=== PATIENT | female | born 1940 | race Caucasian/White ===

== ENCOUNTER 2024-09-01 04:48 | Inpatient (IN) | payer MEDICARE ==
[2024-09-01] MEDS ORDERED: Nitroglycerin 50 MG/250 ML BOT 250 ML ONE (04:52)
[2024-09-01] MEDS ORDERED: Labetalol HCl 100 MG/20 ML VIAL ONE (04:56)
[2024-09-01 05:18] LABS: Actual Bicarbonate (HCO3v) 26.7 mEq/L (22-28); Base Excess -2.2 mEq/L (-2.0 to +3.0); Calcium, Ionized (venous) 1.17 mmol/L (1.16-1.32); Chloride (VBG) 104 mmol/L (98-106); Hematocrit-VBG 45 % (36.0-47.0); Hemoglobin (Hb) 15.2 g/dL (11.7-16.1); Potassium (VBG) 4.15 mmol/L (3.70-5.30); Sodium 142 mmol/L (133-146); pH (venous) 7.241 (7.32-7.43)
[2024-09-01 05:19] LABS: #Basophils 0.09 10x3/uL (0.0-0.2); %Basophils 0.7 % (0.0-1.0); %Lymphocytes 28.2 % (21.0-51.0); %Monocytes 4.3 % (0.0-10.0); %Neutrophils 64.5 % (42.0-75.0); Hematocrit 43.3 % (36.0-47.0); Hemoglobin 14.1 g/dL (12.0-16.0); Mean Corpuscular HGB CONC 32.6 g/dL (32.0-36.0); Mean Corpuscular Hemoglobin 31.2 pg (27.0-31.0); Mean Corpuscular Volume 95.8 fL (78.0-98.0); Mean Platelet Volume 10.1 fL (7.4-10.4); Platelet Count 286 10x3/uL (130-400); RBC Distribution Width 13.2 % (11.5-14.5); Red Blood Cell (RBC) Count 4.52 mill/uL (4.20-5.40)
[2024-09-01 05:36] LABS: ALT (SGPT) 64 U/L (8-55); AST (SGOT) 69 U/L (5-34); Albumin 3.6 g/dL (3.4-4.8); Alkaline Phosphatase 152 U/L (40-110); Anion Gap 13 mmol/L (10-20); BUN (Urea Nitrogen) 19 mg/dL (9.8-20.1); Bilirubin, Total 0.4 mg/dL (0.2-1.2); Calc. Creatinine Clearance 0 mL/min (70-130); Calcium 8.9 mg/dL (7.8-10.44); Carbon Dioxide 27 mmol/L (23-31); Chloride 104 mmol/L (98-107); Estimated GFR 67; Globulin 3.2 g/dL (2.4-3.5); Glucose 215 mg/dL (83-110); Potassium 3.9 mmol/L (3.5-5.1); Protein, Total 6.8 g/dL (5.8-8.1); Sodium 140 mmol/L (136-145)
[2024-09-01 05:40] LABS: Troponin I Less than 0.010 ng/mL (< 0.028)
[2024-09-01] MEDS ORDERED: Sodium Chloride 0.9% 1,000 ML IV SCH (07:00)
[2024-09-01] MEDS ORDERED: Furosemide 40 MG (4 mL) VIAL ONE (07:01)
[2024-09-01] MEDS ORDERED: Ondansetron PF 4 MG/2 ML Vial IVP PRN (07:27)
[2024-09-01] MEDS ORDERED: Albuterol 2.5 MG (3 mL) NEB NEB PRN (07:27)
[2024-09-01] MEDS ORDERED: Ipratropium Bromide 2.5 ml Neb NEB PRN (07:27)
[2024-09-01] MEDS ORDERED: Acetaminophen 325 MG TAB PO PRN (07:27)
[2024-09-01] MEDS ORDERED: Azithromycin 250 MG TAB ONE (08:13)
[2024-09-01] MEDS ORDERED: Sodium Chloride 0.9% 100 ML ONE (08:14)
[2024-09-01] MEDS ORDERED: methylPREDNISolone Sod Succ 40 MG VIAL ONE (08:14)
[2024-09-01] MEDS ORDERED: cefTRIAXone (ROCEPHIN) 2 GM VIAL ONE (08:14)
[2024-09-01] MEDS: Arformoterol 15 MCG/2 ML NEB NEB SCH ×2 (08:24→19:04)
[2024-09-01] MEDS: methylPREDNISolone Sod Succ 40 MG VIAL IVP SCH (08:31)
[2024-09-01] MEDS: Azithromycin 250 MG TAB PO SCH (08:31)
[2024-09-01] MEDS: cefTRIAXone\\ROCEPHIN 2 GM in Sodium Chloride 0.9% 100 ML IVPB SCH (08:31)
[2024-09-01] MEDS ORDERED: Enoxaparin 40 MG (0.4 mL) SYRINGE ONE (08:33)
[2024-09-01] MEDS: Enoxaparin 40 MG (0.4 mL) SYRINGE SC SCH (08:38)
[2024-09-01] MEDS ORDERED: Pantoprazole DR 40 MG TAB ONE (10:32)
[2024-09-01] MEDS: Pantoprazole DR 40 MG TAB PO SCH (10:38)
[2024-09-01 10:40] VITALS: BMI 25.0
[2024-09-01] MEDS ORDERED: Nitroglycerin 2% Ointment 1 INCH/1 GM Packet TOP PRN (10:45)
[2024-09-01] MEDS: Hydrocortisone 1% Cream 30 GM TUBE TOP SCH (13:18)
[2024-09-01] MEDS: Furosemide 40 MG (4 mL) VIAL SLOW IVP SCH (14:22)
[2024-09-01] MEDS: Carvedilol 3.125 MG TAB PO SCH (16:41)
[2024-09-01] MEDS ORDERED: FLU (Fluad Triv) TS24-25 (65UP)/MF59C/PF 45 MCG/0.5 ML Syringe IM ONE (18:00)
[2024-09-01] MEDS: Ipratropium/Albuterol 3 ML NEB NEB PRN (19:03)
[2024-09-01] MEDS: Sacubitril 24MG/Valsartan 26 MG TAB PO SCH (20:43)
[2024-09-02 05:18] LABS: #Basophils Less than 0.03 10x3/uL (0.0-0.2); #Eosinophils Less than 0.03 10x3/uL (0.0-0.7); %Basophils 0.1 % (0.0-1.0); %Lymphocytes 7.8 % (21.0-51.0); %Monocytes 1.3 % (0.0-10.0); %Neutrophils 90.5 % (42.0-75.0); Hematocrit 39.1 % (36.0-47.0); Hemoglobin 13.3 g/dL (12.0-16.0); Mean Corpuscular Hemoglobin 31.4 pg (27.0-31.0); Mean Corpuscular Volume 92.2 fL (78.0-98.0); Mean Platelet Volume 10.7 fL (7.4-10.4); Platelet Count 234 10x3/uL (130-400); Red Blood Cell (RBC) Count 4.24 mill/uL (4.20-5.40)
[2024-09-02 05:53] LABS: Anion Gap 13 mmol/L (10-20); BUN (Urea Nitrogen) 22 mg/dL (9.8-20.1); Calc. Creatinine Clearance 47 mL/min (70-130); Calcium 8.9 mg/dL (7.8-10.44); Carbon Dioxide 26 mmol/L (23-31); Chloride 103 mmol/L (98-107); Estimated GFR 73; Glucose 165 mg/dL (83-110); Potassium 3.8 mmol/L (3.5-5.1); Sodium 138 mmol/L (136-145)
[2024-09-02 08:27] LABS: ALT (SGPT) 40 U/L (8-55); AST (SGOT) 24 U/L (5-34); Albumin 3.3 g/dL (3.4-4.8); Alkaline Phosphatase 128 U/L (40-110); Bilirubin, Direct 0.2 mg/dL (0.1-0.3); Bilirubin, Total 0.5 mg/dL (0.2-1.2); Protein, Total 6.3 g/dL (5.8-8.1)
[2024-09-02] MEDS ORDERED: [UNRECOGNIZED DRUG - OTHER] FS SCH (09:45)
[2024-09-02] MEDS: Doxycycline 100 MG CAP PO SCH (10:00)
[2024-09-02] MEDS: Empagliflozin 10 MG TAB PO SCH (10:00)
[2024-09-02] MEDS ORDERED: methylPREDNISolone Sod Succ 40 MG VIAL IVP SCH (21:00)
[2024-09-03 04:39] LABS: #Basophils 0.03 10x3/uL (0.0-0.2); #Eosinophils Less than 0.03 10x3/uL (0.0-0.7); %Basophils 0.2 % (0.0-1.0); %Lymphocytes 13.2 % (21.0-51.0); %Monocytes 5.2 % (0.0-10.0); %Neutrophils 81.1 % (42.0-75.0); Hematocrit 43.3 % (36.0-47.0); Hemoglobin 14.4 g/dL (12.0-16.0); Mean Corpuscular HGB CONC 33.3 g/dL (32.0-36.0); Mean Corpuscular Volume 93.1 fL (78.0-98.0); Mean Platelet Volume 10.9 fL (7.4-10.4); Platelet Count 283 10x3/uL (130-400); RBC Distribution Width 13.2 % (11.5-14.5); Red Blood Cell (RBC) Count 4.65 mill/uL (4.20-5.40)
[2024-09-03 04:51] LABS: ALT (SGPT) 32 U/L (8-55); AST (SGOT) 17 U/L (5-34); Albumin 3.4 g/dL (3.4-4.8); Alkaline Phosphatase 131 U/L (40-110); Anion Gap 15 mmol/L (10-20); BUN (Urea Nitrogen) 27 mg/dL (9.8-20.1); Bilirubin, Total 0.3 mg/dL (0.2-1.2); Calc. Creatinine Clearance 40 mL/min (70-130); Calcium 9.1 mg/dL (7.8-10.44); Carbon Dioxide 27 mmol/L (23-31); Chloride 101 mmol/L (98-107); Estimated GFR 60; Globulin 3.1 g/dL (2.4-3.5); Glucose 110 mg/dL (83-110); Potassium 3.4 mmol/L (3.5-5.1); Protein, Total 6.5 g/dL (5.8-8.1); Sodium 140 mmol/L (136-145)
[2024-09-03] MEDS: predniSONE 20 MG TAB PO SCH (08:15)
[2024-09-03] MEDS: Potassium Chloride 20 MEQ TAB PO SCH (11:48)
[2024-09-03] MEDS ORDERED: predniSONE 50 MG TAB PO SCH (18:00)
[2024-09-03] MEDS: diphenhydrAMINE 25 MG CAP PO SCH (18:02)
[2024-09-04 06:26] LABS: #Basophils Less than 0.03 10x3/uL (0.0-0.2); #Eosinophils Less than 0.03 10x3/uL (0.0-0.7); %Basophils 0.2 % (0.0-1.0); %Eosinophils 0.1 % (0.0-10.0); %Lymphocytes 16.5 % (21.0-51.0); %Neutrophils 75.9 % (42.0-75.0); Hematocrit 46.1 % (36.0-47.0); Hemoglobin 15.2 g/dL (12.0-16.0); Mean Corpuscular Volume 93.9 fL (78.0-98.0); Mean Platelet Volume 10.3 fL (7.4-10.4); Platelet Count 283 10x3/uL (130-400); RBC Distribution Width 13.2 % (11.5-14.5); Red Blood Cell (RBC) Count 4.91 mill/uL (4.20-5.40)
[2024-09-04 06:53] LABS: ALT (SGPT) 24 U/L (8-55); AST (SGOT) 13 U/L (5-34); Albumin 3.3 g/dL (3.4-4.8); Alkaline Phosphatase 119 U/L (40-110); Anion Gap 14 mmol/L (10-20); BUN (Urea Nitrogen) 26 mg/dL (9.8-20.1); Bilirubin, Total 0.4 mg/dL (0.2-1.2); Calc. Creatinine Clearance 43 mL/min (70-130); Calcium 8.7 mg/dL (7.8-10.44); Carbon Dioxide 28 mmol/L (23-31); Chloride 101 mmol/L (98-107); Estimated GFR 67; Glucose 93 mg/dL (83-110); Potassium 3.6 mmol/L (3.5-5.1); Protein, Total 6.3 g/dL (5.8-8.1); Sodium 139 mmol/L (136-145)
[2024-09-04] MEDS: Furosemide 20 MG TAB PO SCH (09:03)
[2024-09-04 11:40] VITALS: TEMP 98.6
[2024-09-04 15:25] VITALS: BP 148/65
== END 2024-09-04 17:00 | disposition home or self-care (01) | DRG 291 ==
LOC: ERS 04:48 → 2NO 06:52 → ERHOLD 06:54 → 2NO 12:34
PROVIDERS: ADMIT Student in an Organized Health Care Education/Training Program; ATTEND Internal Medicine
DX: I11.0 Hypertensive heart disease with heart failure (principal); I50.33 Acute on chronic diastolic (congestive) heart failure; J96.01 Acute respiratory failure with hypoxia; E87.20 Acidosis, unspecified; J44.1 Chronic obstructive pulmonary disease with (acute) exacerbation; Z91.041 Radiographic dye allergy status; Z88.1 Allergy status to other antibiotic agents; Z88.8 Allergy status to other drugs, medicaments and biological substances; Z90.710 Acquired absence of both cervix and uterus; Z87.891 Personal history of nicotine dependence; Z90.49 Acquired absence of other specified parts of digestive tract; Z98.890 Other specified postprocedural states; I16.0 Hypertensive urgency; I44.7 Left bundle-branch block, unspecified; Z79.899 Other long term (current) drug therapy
CPT/HCPCS: 36415; 71045; 71046; 80048; 80053; 80076; 82805; 83605; 83880; 84484; 85025; 87040; 87428; 93005; 93306; 94660; 96374; J0696; J1650; J1940; J2919; J7512; J7620